=== PATIENT | female | born 1980 | race African-American/Black ===

== ENCOUNTER 2020-03-09 09:18 | Emergency (ER) | payer OTHER, SELFPAY ==
[2020-03-09] VITALS (12 sets, daily range): BP systolic 106–133; BP diastolic 68–92; PULSE 85–105; RESP 16–31; TEMP 35.6; O2SAT 96–100
--- NOTE | ~2020-03-09 | XR_ITS ---
EXAMINATION: XR chest 1V portable INDICATION: Shortness of breath TECHNIQUE: Portable AP chest at 1030 hours COMPARISON: None available FINDINGS: There are minimal airspace opacity of the mid and lower lung zones. No pleural effusion or pneumothorax is identified. The cardiomediastinal silhouette is normal. The visualized osseous struct ures are unremarkable. IMPRESSION: 1. Minimal airspace opacities of the mid and lower lung zones, consistent with atelectasis versus pne umonia. Reviewed, dictated and finalized at location A. ER ADVISOR IMPRESSION: 1. Minimal airspace opacities of the mid and lower lung zones, consistent with atelectasis versus pneumonia.
--- NOTE | 2020-03-09 10:56 | ED.GENADULT ---
HPI - General Adult General Chief complaint: Unspecified <Brian Sargent PA-C - Last Filed: 03/09/20 11:27> Stated complaint: diff breathing, fever, aches <Brian Sargent PA-C - Last Filed: 03/09/20 11:27> Time Seen by Provider: 03/09/20 10:11 <Brian Sargent PA-C - Last Filed: 03/09/20 11:27> Source: patient <Brian Sargent PA-C - Last Filed: 03/09/20 11:27> Mode of arrival: ambulatory <Brian Sargent PA-C - Last Filed: 03/09/20 11:27> Limitations: no limitations <Brian Sargent PA-C - Last Filed: 03/09/20 11:27> History of Present Illness HPI narrative: Patient is a 39-year-old female who presents with 2 days duration of fever chills body aches headache congestion sore throat cough denies vomiting diarrhea subjective fever with chills and fatigue patient works in a hospital but believes she may have been exposed by her boyfriend who she lives with patient on arrival is in no distress appears slightly uncomfortable has taken Tylenol for her symptoms <Brian Sargent PA-C - Last Filed: 03/09/20 11:27> Related Data Allergies/adverse reactions: Allergies Allergy/AdvReac Type Severity Reaction Status Date / Time No Known Allergies Allergy Verified 03/09/20 09:30 <Brian Sargent PA-C - Last Filed: 03/09/20 11:27> Review of Systems Review of Systems: All systems reviewed & are unremarkable except as noted in HPI and below <Brian Sargent PA-C - Last Filed: 03/09/20 11:27> PMFSH Social History Social History: Social History Gender identity (if verbalized by the patient): Female <TAMARA Ayala Last Filed: 03/09/20 11:27> Exam Narrative: Exam Narrative: GENERAL: Well-appearing, well-nourished, and in no acute distress. HEAD: Normocephalic, atraumatic. EYES: PERRLA and EOMI. ENT: Nares clear, no rhinorrhea or epistaxis. CHEST: Clear to auscultation. No respiratory distress. No wheezes rales or rhonchi HEART: Regular rate and rhythm. No murmur heard. Normal peripheral pulses. EXTREMITIES: Normal range of motion. No edema. SKIN: Warm, dry, no rash. NEURO: No focal deficits. Alert and oriented x3. Cranial nerves II through XII grossly intact PSYCH: Normal mood and affect. <TAMARA Ayala Last Filed: 03/09/20 11:27> Course Course Emergency Course: Patient in the room will be tested for Covid will be treated for her symptoms to include antibiotic will be discharged will follow with her primary care for test results advised to self quarantine patient given reasons to return patient at this time hemodynamically stable afebrile nontoxic-appearing without emesis ABCs intact and stable <TAMARA Ayala Last Filed: 03/09/20 11:27> Vital Signs Vital signs: Vital Signs Temperature 35.6 C L 03/09/20 09:25 Pulse Rate 105 H 03/09/20 09:25 Respiratory Rate 28 H 03/09/20 09:25 Blood Pressure 110/77 03/09/20 09:25 Pulse Oximetry 100 03/09/20 09:25 Temperature 35.6 C L 03/09/20 09:25 Pulse Rate 86 03/09/20 11:39 Respiratory Rate 16 03/09/20 11:39 Blood Pressure 106/68 03/09/20 11:39 Pulse Oximetry 100 03/09/20 11:39 <Brian Sargent PA-C - Last Filed: 03/09/20 11:27> Vital Signs Temperature 35.6 C L 03/09/20 09:25 Pulse Rate 105 H 03/09/20 09:25 Respiratory Rate 28 H 03/09/20 09:25 Blood Pressure 110/77 03/09/20 09:25 Pulse Oximetry 100 03/09/20 09:25 Temperature 35.6 C L 03/09/20 09:25 Pulse Rate 86 03/09/20 11:39 Respiratory Rate 16 03/09/20 11:39 Blood Pressure 106/68 03/09/20 11:39 Pulse Oximetry 100 03/09/20 11:39 <Bianca Craig MD - Last Filed: 03/09/20 11:49> Medical Decision Making MDM Narrative Medical decision making narrative: Patient with viral syndrome probably consistent with Covid given the pandemic will be discharged home treated accordingly larisa
[2020-03-09 21:18] LABS: SARS-CoV-2 RNA PCR Positive
== END 2020-03-09 11:40 | disposition home or self-care (01) ==
PROVIDERS: Emergency Medicine Emergency Medical Services; Emergency Provider Emergency Medicine; PCP Nurse Practitioner Family
DX: U07.1 COVID-19 (principal); J12.89 Other viral pneumonia
CPT/HCPCS: 71045; 87635; 99283; C9803; U0003

== ENCOUNTER 2020-12-26 13:17 | Outpatient (RCR) | payer OTHER, SELFPAY ==
--- NOTE | 2020-12-26 14:47 | PTOPEVAL ---
Physical Therapy Evaluation/Discharge Note Thank you for referring Maggy Prince to [facility] [place].? No additional skilled therapy services required at this time. See summary below for detailed information. Please review, sign, date and return this discharge summary SAM. I agree with and certify that the following plan of care is medically necessary. Referring Physician Date Attending Provider: ROBI NG, [employer]MENT PLANT OPERATOR Diagnosis muscle weakness, joint limitations Additional Evaluation Detail She caught COVID Feb 2020. Denies hospitalization. She then had pneumonia Mar 2020. She c/o of her immune system continues to be off .She continues to use the inhaler. Finger injury September 2019. Subjective Information She has returned to her normal Query Text:As Reported By Patient/ household activities. She has Family trouble sleeping after 3 hrs. She works out 3 days a week with a personal financial representative consistently of resistance of bands and cardio. Denies issues with community mobility. 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 Pain Assessment Timing of Pain Assessment Assessment Self Report Self Report Pain Level 0 Cervical and Lumbar ROM Reason Not Measured WNL/Left,WNL/Right Lumbar ROM WNL Lumbar Comments no pain Upper Extremity Range of Motion General Upper Extremity Range of Motion Reason Not Measured WNL/Left,WNL/Right Gross Upper Extremity Range of Motion no pain Comments Lower Extremity Muscle Strength Testing General Lower Extremity Strength Reason Not Measured WNL/Left,WNL/Right Gross Lower Extremity Strength no pain reshma hip abduction 4/5 Upper Extremity Muscle Strength Testing General Upper Extremity Strength Reason Not Measured WNL/Left,WNL/Right Gross Upper Extremity Strength Comments no pain General Exercise Exercise Description - discussion on monitoring HR Query Text:Record Sets, Reps, with workout and working in a Resistance, and Position 60-80% zone. Ed on types of posters or handouts to help with tracking the number - discussed importance of well rounded fitness/stretching routine to maintain full body
== END 2020-12-26 16:00 | disposition home or self-care (01) ==
LOC: ANHPT 13:17
PROVIDERS: PCP Nurse Practitioner Family; Visit Provider Nurse Practitioner Family
DX: R53.1 Weakness (principal); M25.60 Stiffness of unspecified joint, not elsewhere classified
CPT/HCPCS: 97161

== ENCOUNTER 2021-11-20 17:12 | Emergency (ER) | payer OTHER, SELFPAY ==
[2021-11-20 17:26] VITALS: BP 118/91; PULSE 114; RESP 16; TEMP 37.4; O2SAT 100
--- NOTE | 2021-11-20 17:42 | ED.URI ---
HPI - URI/Sore Throat General Chief Complaint: Upper Respiratory Infection Stated Complaint: cifuentes/fever Time Seen by Provider: 11/20/21 17:32 Source: patient Mode of arrival: ambulatory Limitations: no limitations History of Present Illness HPI Narrative: Patient presents today complaining of 2-day history of headache, fatigue, with a fever of 100.9 since 2:00 this morning. Denies any additional symptoms to include cough, sore throat, congestion, rhinorrhea. She has been taking Tylenol without much relief. Currently rates her headache 10/03. She took 1 home COVID-19 test yesterday and 1 just prior to arrival. Both were negative. Related Data Home Medications Medication Instructions Recorded Confirmed montelukast 10 mg tablet 10 mg PO DAILY 11/20/21 11/20/21 phentermine 37.5 mg tablet 37.5 mg PO DAILY 11/20/21 11/20/21 Allergies Allergy/AdvReac Type Severity Reaction Status Date / Time azithromycin Allergy Itching Verified 11/20/21 17:39 Review of Systems Review of Systems: CONSTITUTIONAL: Denies body aches, chills, or sweats.+ Fever EYES: Denies visual changes, redness, or discharge. ENT: Denies rhinorrhea, congestion, sore throat, or otalgia. CARDIOVASCULAR: Denies chest pain, palpitations, or edema. RESPIRATORY: Denies cough or dyspnea. GASTROINTESTINAL: Denies abdominal pain, nausea, vomiting, or diarrhea. GENITOURINARY: Denies dysuria or hematuria. SKIN: Denies rash, itching, or wounds. MUSCULOSKELETAL: Denies back pain, joint pain, or myalgia. NEUROLOGIC: Denies numbness, tingling, or weakness.+ Headache PSYCH: Denies depression or anxiety. PMFSH Social History Social History Gender identity (if verbalized by the patient): Female Comments At time of signature, I have reviewed and agree with nursing past medical, surgical, social and family history unless otherwise noted. Please see nursing chart for further information. There is no relevant family history pertinent to the presenting complaint Exam Narrative: GENERAL: Well-appearing, well-nourished, and in no acute distress. HEAD: Normocephalic, atraumatic. EYES: EOMI. No redness or drainage. Conjunctivae normal. ENT: Mucous membranes pink and moist. Nares clear. No rhinorrhea. TMs normal bilaterally. Throat normal with moderate amount of white postnasal drainage Uvula midline. NECK: Normal AROM. Supple. No lymphadenopathy. CHEST: No respiratory distress. Clear to auscultation. HEART: Regular rate and rhythm. No murmur appreciated. Normal peripheral pulses. EXTREMITIES: Normal range of motion. No edema. SKIN: Warm, dry, no rash. Capillary refill normal. Normal skin turgor. NEURO: No focal deficits. Alert and oriented x3. Gait steady. PSYCH: Normal affect. No signs of depression or anxiety. Course Course Level of Care: Express Care Visit Vital Signs Vital signs: Vital Signs Temperature 99.4 F 11/20/21 17:26 Pulse Rate 114 H 11/20/21 17:26 Respiratory Rate 16 11/20/21 17:26 Blood Pressure 118/91 H 11/20/21 17:26 Pulse Oximetry 100 11/20/21 17:26 Oxygen Delivery Room Air 11/20/21 17:26 Temperature 99.4 F 11/20/21 17:26 Pulse Rate 114 H 11/20/21 17:26 Respiratory Rate 16 11/20/21 17:26 Blood Pressure 118/91 H 11/20/21 17:26 Pulse Oximetry 100 11/20/21 17:26 Oxygen Delivery Room Air 11/20/21 17:26 Reviewed. Pt has been instructed to follow up with her PCP regarding her elevated blood pressure today. MDM - URI/Sore Throat Differential Diagnosis Differential diagnosis: Likely upper respiratory infection, sinusitis, viral infection and influenza Lab Data Labs: Influenza A Screen Negative Reference Range: Negative Influenza B Screen Negative Reference Range: Negative Critical Care Time Critical Care Time
== END 2021-11-20 18:10 | disposition home or self-care (01) ==
PROVIDERS: Emergency Provider Nurse Practitioner; PCP Nurse Practitioner Family
DX: B34.9 Viral infection, unspecified (principal); Z86.16 Personal history of COVID-19
CPT/HCPCS: 87804; 99213; G0463